=== PATIENT | male | born 2000 | race African-American/Black ===

== ENCOUNTER 2022-04-05 13:39 | Emergency (ER) | payer SELFPAY ==
[2022-04-05 13:44] VITALS: BP 148/70; PULSE 70; RESP 18; TEMP 36.6; O2SAT 100; BMI 23.6
--- NOTE | 2022-04-05 14:25 | CRLHL7_ITS ---
For Patients: As a result of the Century Cures Act, medical imaging exams and procedure reports are released immediately into your electronic medical record. You may view this report before your referring provider. If you have questions, please contact your health care provider. INDICATION: Shortness of breath. TECHNIQUE: Chest 1 views. COMPARISON: April 14, 2011. FINDINGS: Cardiovasculature and mediastinum: Heart size and vasculature are normal in caliber and appearance. Lungs and pleural spaces: Lungs are clear. No sign of infiltrate or mass. No sign of pleural effusion. No pneumothorax. Bones and soft tissues: No significant findings. IMPRESSION: No acute findings and no significant changes from the prior exam. Dictated by Jacky Gaona MD @ 04/05/2022 4:01:37 PM (Electronically Signed)
[2022-04-05 14:39] LABS: PCR FLU A Negative PCR FLU A (Negative); PCR FLU B Negative PCR FLU B (Negative)
[2022-04-05 14:40] LABS: SARS PCR* POSITIVE SARS-CoV-2 (Negative)
[2022-04-05] MEDS: IBUPROFEN 200 MG TABLET 400 MG PO (14:48)
--- NOTE | 2022-04-05 14:50 | ED.GENADULT ---
HPI - General Adult General Date Seen: 04/05/22 Chief complaint: Weakness Stated complaint: Congested Cough Headache Time Seen by Provider: 04/05/22 14:18 Source: patient History of Present Illness HPI narrative: Patient is a 22-year-old here with Mom for evaluation of viral type symptoms starting yesterday. He describes body aches, headache, cough, and some pain in the left side of his body when he coughs. He does not describe significant shortness of breath. No vomiting or diarrhea. No rashes. No ill exposures that he knows of. No significant sore throat. He says he is coughing up some sputum. No underlying asthma or diabetes. General health is good. He does not smoke or vape. Related Data Home Medications Medication Instructions Recorded Confirmed No Known Home Medications 04/05/22 04/05/22 Allergies Allergy/AdvReac Type Severity Reaction Status Date / Time No Known Drug Allergies Allergy Verified 04/05/22 13:46 Review of Systems Status of ROS: Reports: 10 or more systems reviewed and unremarkable except as noted in History and below [facility] Social History Smoking Status: Unknown if ever smoked How often do you have a drink containing alcohol: monthly or less AUDIT-C Alcohol total score: 1 Non-prescribed substance use: denies use Exam Narrative: Exam Narrative: Vital signs as noted above. In general, an alert, well-appearing patient. Head: Normocephalic, atraumatic. Eyes: Pupils are equal reactive. Extraocular movements are full. Conjunctivae are normal. ENT: Mucous membranes are moist. Throat is normal. Neck: Supple without lymphadenopathy. Heart: Regular rate and rhythm. No murmur or rub. Lungs: Clear bilaterally. No increased work of breathing, crackles or wheezes. Abdomen: Soft and nontender. No organomegaly. Extremities: Well perfused. No edema. No calf tenderness. Pulses intact. Neurologic: Patient is alert and oriented to person and place. Speech is fluent. Face is symmetric. Moves all extremities equally. Affect: Normal. Skin: Warm and dry. Well perfused. Const: Vital Signs, click to edit/add: Vital Signs - 24 hr 04/05/22 13:44 Temperature 97.8 F Pulse Rate [Right Pulse Oximeter] 70 Respiratory Rate 18 Blood Pressure [Ri ght Upper Arm] 148/70 H Pulse Oximetry 100 Oxygen Delivery Me thod Room Air Documenting provider has reviewed patient's vital signs: yes Course Course Hospital Course: Given the left-sided chest pain, I did offer to do a chest x-ray. COVID, influenza and RSV swab was done. Ultimately the COVID swab returned positive. Chest x-ray by my review is negative. Final radiology report is pending. Recommend supportive care, ibuprofen and Tylenol as needed. Anticipate improvement over the next 1-2 weeks, primary care follow-up if not improving. Return for worsening respiratory symptoms or other concerns. Vital Signs Vital signs: Initial Vital Signs Temperature 97.8 F 04/05/22 13:44 Temperature Source Temporal Artery Scan 04/05/22 13:44 Pulse Rate 70 04/05/22 13:44 Respiratory Rate 18 04/05/22 13:44 Blood Pressure 148/70 H 04/05/22 13:44 Blood Pressure Mean 96 04/05/22 13:44 Blood Pressure Position Sitting 04/05/22 13:44 Pulse Oximetry 100 04/05/22 13:44 Oxygen Delivery Method 04/05/22 13:44 Vital Signs Temperature 97.8 F 04/05/22 13:44 Pulse Rate 70 04/05/22 13:44 Respiratory Rate 18 04/05/22 13:44 Blood Pressure 148/70 H 04/05/22 13:44 Pulse Oximetry 100 04/05/22 13:44 Oxygen Delivery Method 04/05/22 13:44 Temperature 97.8 F 04/05/22 13:44 Pulse Rate 70 04/05/22 13:44 Respiratory Rate 18 04/05/22 13:44 Blood Pressure 148/70 H 04/05/22 13:44 Pulse Oximetry 100 04/05/22 13:44 Oxygen Delivery Method 04/05/22 13:44 Medical Decision Making Lab Data Labs: Lab Results 04/05/22 Range/Units 13:53 SARS-CoV-2 (PCR) POSITIVE SARS-CoV-2 A (Negative) Influenza Type A (PCR) Negative PCR FLU A (Negative) Influenza Type B (PCR) Negative PCR FLU B (Negative) Discharge Plan Discharge Clinical Impression: COVID-19 Patient Disposition: Home, Self-Care Condition: Stable Instructions: COVID-19 (Coronavirus Disease 2019) (ED) Additional Instructions: Return for significant worsening respiratory symptoms. Ibuprofen and/or Tylenol as needed for aches or fever. Primary care follow-up if not improving over the next 1-2 weeks. Prescriptions: No Action No Known Home Medications Follow Up/Referrals: Provider,Not a Local [Primary Care Provider] - Stand Alone Forms: [employer] Info Instructions
== END 2022-04-05 15:34 | disposition home or self-care (01) ==
PROVIDERS: Emergency Provider Emergency Medicine
DX: U07.1 COVID-19 (principal)
CPT/HCPCS: 71045; 87631; 99283; 99284; A9270

== ENCOUNTER 2022-04-09 11:54 | Emergency (ER) | payer SELFPAY ==
[2022-04-09 12:02] VITALS: BP 125/56; PULSE 45; RESP 16; TEMP 36.2; O2SAT 100; BMI 25.1
--- NOTE | 2022-04-09 15:31 | ED.NURSE ---
pt not in waiting room any longer. did not tell anyone if he left.
== END 2022-04-09 15:47 | disposition left against medical advice (07) ==
LOC: ED 15:45
DX: Z53.21 Procedure and treatment not carried out due to patient leaving prior to being seen by health care provider (principal)
CPT/HCPCS: 99281

== ENCOUNTER 2022-09-29 17:56 | Emergency (ER) | payer SELFPAY ==
[2022-09-29 18:05] VITALS: BP 145/72; PULSE 98; RESP 14; TEMP 37.1; O2SAT 98; BMI 23.2
--- NOTE | 2022-09-29 18:14 | ED_ITS ---
HPI - General Adult General Chief complaint: Dental/Oral/Mouth Injury/Pain Stated complaint: Tooth Pain Time Seen by Provider: 09/29/22 17:59 Source: patient Mode of arrival: ambulatory Limitations: no limitations History of Present Illness HPI narrative: 22-year-old male coming in today complaining of tooth pain. He states that he noticed that his tooth cracked and a portion of fell out of his mouth about 5 months ago he has been having pain ever since. In the last 2 weeks he feels like the pain is getting worse. Pain is located on the top 2nd to last tooth and radiates across his entire cheek. He denies any swelling, no fevers or chills, no nausea or vomiting. He has not been to the dentist yet. Related Data Previous Rx's Medication Instructions Recorded ketorolac 10 mg tablet 10 mg PO TID PRN 5 days #15 tabs 09/29/22 Allergies Allergy/AdvReac Type Severity Reaction Status Date / Time No Known Drug Allergies Allergy Verified 09/29/22 18:04 Review of Systems Status of ROS: Reports: 6 or more systems reviewed and unremarkable except as noted in History and below [facility] Social History Smoking Status: Unknown if ever smoked How often do you have a drink containing alcohol: monthly or less AUDIT-C Alcohol total score: 1 Non-prescribed substance use: denies use Exam Narrative: Exam Narrative: Well-nourished well-developed patient in no acute distress. Alert and oriented. Answers questions appropriately. Mood and affect are appropriate. Thoughts are goal oriented and rational. No tangential or magical thinking noted. Patient speaks in full sentences without needing to catch his breath. HEENT: Normocephalic atraumatic. Pupils are equally round reactive to light. Extraocular muscles are intact. Conjunctivae are moist without any icterus noted. Moist mucous membranes. Posterior pharynx is normal. Neck is soft without any lymphadenopathy or thyromegaly. No masses are appreciated. The 2nd molar on the top left side is partially cracked. There is no erythema or swelling of the gums in that area. There is no buccal swelling or tenderness. Skin: Well perfused without any obvious rashes. Const: Vital Signs, click to edit/add: Vital Signs - 24 hr 09/29/22 18:05 Temperature 98.7 F Pulse Rate [Pulse Oximeter] 98 Respiratory Rate 14 Blood Pressure [Ri ght Upper Arm] 145/72 H Pulse Oximetry 98 Oxygen Delivery Me thod Room Air Course Vital Signs Vital signs: Initial Vital Signs Temperature 98.7 F 09/29/22 18:05 Temperature Source Temporal Artery Scan 09/29/22 18:05 Pulse Rate 98 09/29/22 18:05 Respiratory Rate 14 09/29/22 18:05 Blood Pressure 145/72 H 09/29/22 18:05 Blood Pressure Mean 96 09/29/22 18:05 Pulse Oximetry 98 09/29/22 18:05 Oxygen Delivery Method Room Air 09/29/22 18:05 Vital Signs Temperature 98.7 F 09/29/22 18:05 Pulse Rate 98 09/29/22 18:05 Respiratory Rate 14 09/29/22 18:05 Blood Pressure 145/72 H 09/29/22 18:05 Pulse Oximetry 98 09/29/22 18:05 Oxygen Delivery Method Room Air 09/29/22 18:05 Temperature 98.7 F 09/29/22 18:05 Pulse Rate 98 09/29/22 18:05 Respiratory Rate 14 09/29/22 18:05 Blood Pressure 145/72 H 09/29/22 18:05 Pulse Oximetry 98 09/29/22 18:05 Oxygen Delivery Method Room Air 09/29/22 18:05 Medical Decision Making MDM Narrative Medical decision making narrative: Tooth pain with a cracked tooth, no evidence of infection. We discussed that he needs to get to the dentist as he may have an exposed root. We will put him on Toradol to take as directed, as needed. Patient was agreeable and had no other questions. Discharge Plan Discharge Clinical Impression: Toothache Patient Disposition: Home, Self-Care Condition: Stable Additional Instructions: Take pain medication as needed/as directed. You will need to follow-up with a dentist or this problem will not resolved. Prescriptions: New ketorolac 10 mg tablet 10 mg PO TID PRN5 Days Qty: 15 0RF Follow Up/Referrals: Provider,Not a Local [Primary Care Provider] - Stand Alone [facility]: [facility] Info Instructions
== END 2022-09-29 18:41 | disposition home or self-care (01) ==
LOC: ED 18:22
PROVIDERS: Emergency Provider Family Medicine
DX: K08.89 Other specified disorders of teeth and supporting structures (principal)
CPT/HCPCS: 99282; 99283

== ENCOUNTER 2023-04-02 07:05 | Emergency (ER) | payer SELFPAY ==
[2023-04-02 07:17] VITALS: BP 153/91; PULSE 55; RESP 18; TEMP 37.2; O2SAT 99; BMI 24.4
[2023-04-02 07:48] VITALS: BP 150/74; PULSE 52; RESP 18; O2SAT 96
[2023-04-02 08:22] LABS: Strep A DNA Probe* NOT DETECTED (Not Detectd)
--- NOTE | 2023-04-02 08:27 | ED_ITS ---
HPI - General Adult General Chief complaint: Cough Stated complaint: sore throat, congestion Time Seen by Provider: 04/02/23 08:25 History of Present Illness HPI narrative: CC: Congestion , Cough pt. with symptoms for last week. traveled to [place], [place] last week. denies fevers, n/v, diarrhea 23-year-old man presenting to the emergency department with complaint of sore throat congestion. Feels like he is having trouble breathing but more so from nasopharyngeal congestion. No treatments attempted. Has had some cold symptoms it sounds like on and off over the last month but the last 2-3 days really got bad. No underlying diagnoses like asthma but did have COVID last year. No fever but says his mom felt has had yesterday he felt warm. Has had some cough. No chest pain. No diarrhea. No rashes. Related Data Previous Rx's Medication Instructions Recorded prednisone 20 mg tablet See Rx Instructions .Route 04/02/23 .COMPLEX 5 days #11 tabs Allergies Allergy/AdvReac Type Severity Reaction Status Date / Time No Known Drug Allergies Allergy Verified 04/02/23 07:18 Review of Systems Status of ROS: Reports: 6 or more systems reviewed and unremarkable except as noted in History and below PFSH PFSH Social History Smoking Status: Former smoker Do you use any of these nicotine containing products: None Second hand tobacco smoke exposure: No How often do you have a drink containing alcohol: never How often do you have six or more drinks on one occasion: Never AUDIT-C Alcohol total score: 0 Non-prescribed substance use: denies use service: No Exam Narrative: Exam Narrative: Pleasant. NAD. Sounds congested nasopharynx but appears to be breathing easily. No facial swelling erythema tenderness. Oropharynx is not particular erythematous there is no cervical lymphadenopathy. Lungs with diffuse trace crepitus and end-expiratory squeaks more so across the upper lung walker bilaterally. Moving good air. Heart is slower in a regular rhythm. Extremities are well perfused without edema. Skin is warm and dry without apparent rash. Const: Vital Signs, click to edit/add: Vital Signs - 24 hr 04/02/23 07:17 04/02/23 07:48 Temperature 98.9 F Pulse Rate [Right Pulse Oximeter] 55 L 52 L Respiratory Rate 18 18 Blood Pressure [Ri ght Upper Arm] 153/91 H 150/74 H Pulse Oximetry 99 96 Oxygen Delivery Me thod Room Air Room Air Documenting provider has reviewed patient's vital signs: yes Course Vital Signs Vital signs: Initial Vital Signs Temperature 98.9 F 04/02/23 07:17 Temperature Source Temporal Artery Scan 04/02/23 07:17 Pulse Rate 55 L 04/02/23 07:17 Respiratory Rate 18 04/02/23 07:17 Blood Pressure 153/91 H 04/02/23 07:17 Blood Pressure Mean 111 H 04/02/23 07:17 Blood Pressure Position Sitting 04/02/23 07:17 Pulse Oximetry 99 04/02/23 07:17 Oxygen Delivery Method Room Air 04/02/23 07:17 Vital Signs Temperature 98.9 F 04/02/23 07:17 Pulse Rate 55 L 04/02/23 07:17 Respiratory Rate 18 04/02/23 07:17 Blood Pressure 153/91 H 04/02/23 07:17 Pulse Oximetry 99 04/02/23 07:17 Oxygen Delivery Method Room Air 04/02/23 07:17 Temperature 98.9 F 04/02/23 07:17 Pulse Rate 52 L 04/02/23 07:48 Respiratory Rate 18 04/02/23 07:48 Blood Pressure 150/74 H 04/02/23 07:48 Pulse Oximetry 96 04/02/23 07:48 Oxygen Delivery Method Room Air 04/02/23 07:48 Medical Decision Making MDM Narrative Medical decision making narrative: Seems to have some lingering URI/head cold/chest cold symptoms. He has described some productive yellow cough sometimes. Does not tried any [id number] treatment yet. Screening done for COVID influenza and strep. These are noted to be negative as I go into the room. I think he would benefit from a decongestant. And prednisone. I think lingering inflammation is more the issue than an active infection i.e. bacterial pneumonia. See patient discharge plan Lab Data Lab results reviewed: Yes I reviewed the patient's lab results Labs: Lab Results 04/02/23 Range/Units 07:27 SARS-CoV-2 (PCR) Negative SARS-CoV-2 (Negative) Influenza Type A (PCR) Negative PCR FLU A (Negative) Influenza Type B (PCR) Negative PCR FLU B (Negative) RSV (PCR) Negative PCR RSV (Negative) Group A Strep DNA NOT DETECTED (Not Detectd) Discharge Plan Discharge Clinical Impression: URI (upper respiratory infection), Bronchitis Condition: Stable Additional Instructions: In addition to the prednisone prescribed here today, I would take pseudoephedrine (I like the 12 hour formulation) for drying and decongestion. If the pseudoephedrine isn't enough and you're really congested right in your nose, try oxymetazoline nasal spray as needed 1-2 sprays each nostril twice a day for a few days, maybe up to 5 days at a time. Might want to sleep under the mist of a cool mist humidifier. Menthol vapors might be helpful. If you're not improving in 2, maybe 3 days, it is possible an antibiotic would be beneficial to help clear your chest. It does not seem to me like you have a pneumonia today. You had squeaks, if I may, in your lungs today indicating inflammation but not a diagnosis of asthma. Prescriptions: New prednisone 20 mg tablet See Rx Instructions .ROUTE .COMPLEX 5 Days Qty: 11 0RF Rx Instructions: Take 60 mg p.o. daily on day 1 and then 40 mg daily days 2 through 5. Follow Up/Referrals: Provider,Not a Local [Primary Care Provider] - Stand Alone Forms: [employer] Info Instructions
[2023-04-02 08:28] LABS: PCR FLU A Negative PCR FLU A (Negative); PCR FLU B Negative PCR FLU B (Negative); PCR RSV Negative PCR RSV (Negative)
[2023-04-02 08:29] LABS: SARS PCR* Negative SARS-CoV-2 (Negative)
== END 2023-04-02 09:12 | disposition home or self-care (01) ==
PROVIDERS: Family Medicine; Emergency Provider Family Medicine
DX: J06.9 Acute upper respiratory infection, unspecified (principal); J40 Bronchitis, not specified as acute or chronic
CPT/HCPCS: 87631; 87651; 99283; 99284

== ENCOUNTER 2024-01-15 18:41 | Emergency (ER) | payer MEDICAID, SELFPAY ==
[2024-01-15 18:45] VITALS: BP 164/93; PULSE 54; RESP 16; TEMP 36.8; O2SAT 99; BMI 23.7
--- NOTE | 2024-01-15 18:53 | CRLHL7_ITS ---
For Patients: As a result of the Century Cures Act, medical imaging exams and procedure reports are released immediately into your electronic medical record. You may view this report before your referring provider. If you have questions, please contact your health care provider. Indication: Injury and pain Technique: Right wrist 3 view Comparison: None Findings: Bones: Alignment is normal. No fractures or bone lesions. Joint spaces: Unremarkable. Soft tissues: Unremarkable. Impression: No sign of acute injury in the right wrist. Dictated by Lianna Gurrola MD @ 01/15/2024 8:07:05 PM (Electronically Signed)
--- NOTE | 2024-01-15 19:26 | ED_ITS ---
HPI - General Adult General Chief complaint: Extremity Pain/Injury, Upper Stated complaint: R wrist pain Time Seen by Provider: 01/15/24 18:50 Source: patient Mode of arrival: ambulatory Limitations: no limitations History of Present Illness HPI narrative: Patient is a 23-year-old male coming in today complaining of right wrist pain. Patient states that approximately 2 weeks ago he was weightlifting and he felt some sharp discomfort in his wrist. The pain slowly got worse with time instead of better. He denies any systemic symptoms such as fevers, chills. He denies pain in his hand, forearm or elbow. No pain in other joints. He denies any symptoms such as penile discharge. Related Data Home Medications ?Medication ?Instructions ?Recorded ?Confirmed No Known Home Medications 01/15/24 01/15/24 Allergies Allergy/AdvReac Type Severity Reaction Status Date / Time No Known Drug Allergies Allergy Verified 04/02/23 07:18 Review of Systems Status of ROS: Reports: 10 or more systems reviewed and unremarkable except as noted in History and below PFSH [facility] Social History Smoking Status: Former smoker Do you use any of these nicotine containing products: None Second hand tobacco smoke exposure: No How often do you have a drink containing alcohol: never How often do you have six or more drinks on one occasion: Never AUDIT-C Alcohol total score: 0 Non-prescribed substance use: denies use service: No Exam Narrative: Exam Narrative: Well-nourished well-developed patient in no acute distress. Alert and oriented. Answers questions appropriately. Mood and affect are appropriate. Thoughts are goal oriented and rational. No tangential or magical thinking noted. Patient speaks in full sentences without needing to catch his breath. HEENT: Normocephalic atraumatic. Pupils are equally round reactive to light. Extraocular muscles are intact. Conjunctivae are moist without any icterus noted. Moist mucous membranes. Extremities: Patient has mild swelling of the dorsal surface of the right wrist when compared to the left. He has tenderness to palpation across the entire dorsal surface. No tenderness on the volar surface. He has tenderness with flexion and extension. He has a normal radial pulse. Hand pricing manager is normal and symmetric. There is no erythema or ecchymosis noted. Const: Vital Signs, click to edit/add: Vital Signs - 24 hr 01/15/24 18:45 Temperature 98.2 F Pulse Rate [Pulse Oximeter] 54 L Respiratory Rate 16 Blood Pressure [Ri ght Upper Arm] 164/93 H Pulse Oximetry 99 Oxygen Delivery Me thod Room Air Course Course ED Course: X-ray was unremarkable. Vital Signs Vital signs: Initial Vital Signs Temperature 98.2 F 01/15/24 18:45 Temperature Source Temporal Artery Scan 01/15/24 18:45 Pulse Rate 54 L 01/15/24 18:45 Respiratory Rate 16 01/15/24 18:45 Blood Pressure 164/93 H 01/15/24 18:45 Blood Pressure Mean 116 H 01/15/24 18:45 Blood Pressure Position Sitting 01/15/24 18:45 Pulse Oximetry 99 01/15/24 18:45 Oxygen Delivery Method Room Air 01/15/24 18:45 Vital Signs Temperature 98.2 F 01/15/24 18:45 Pulse Rate 54 L 01/15/24 18:45 Respiratory Rate 16 01/15/24 18:45 Blood Pressure 164/93 H 01/15/24 18:45 Pulse Oximetry 99 01/15/24 18:45 Oxygen Delivery Method Room Air 01/15/24 18:45 Temperature 98.2 F 01/15/24 18:45 Pulse Rate 54 L 01/15/24 18:45 Respiratory Rate 16 01/15/24 18:45 Blood Pressure 164/93 H 01/15/24 18:45 Pulse Oximetry 99 01/15/24 18:45 Oxygen Delivery Method Room Air 01/15/24 18:45 Medical Decision Making [facility] Narrative Medical decision making narrative: 23-year-old male with wrist pain x2 weeks. Will placed in a wrist splint. Follow-up with primary care/orthopedics for further management and imaging. Discharge Plan Discharge Clinical Impression: Acute wrist pain, Elevated blood pressure reading Patient Disposition: Home, Self-Care Condition: Stable Additional Instructions: Wear wrist splint as needed. Okay to use ibuprofen as needed/as directed for pain. Recommend you establish care with a primary care provider- you should discuss your wrist pain to see if you need further imaging and recheck your blood pressure as your blood pressure was elevated in the emergency department today. Prescriptions: No Action No Known Home Medications Follow Up/Referrals: Provider,Not a Local [Primary Care Provider] - Stand Alone Forms: [employer] Info Instructions
== END 2024-01-15 20:31 | disposition home or self-care (01) ==
PROVIDERS: Emergency Provider Family Medicine
DX: M25.531 Pain in right wrist (principal); R03.0 Elevated blood-pressure reading, without diagnosis of hypertension
CPT/HCPCS: 73100; 99283; 99284